=== PATIENT | male | born 1995 | race Caucasian/White ===

== ENCOUNTER 2021-10-28 01:20 | Emergency (ER) | payer SELFPAY ==
[2021-10-28 01:25] VITALS: BP 139/97; PULSE 124; RESP 18; TEMP 36.5; O2SAT 94
--- NOTE | 2021-10-28 02:01 | W.ED.GENAD ---
Discharge Plan Disposition Patient Disposition: HOME Condition: Good Discharge Details Clinical Impression: Laceration of knee, right Primary Care Provider: Unknown,Unknown ED Provider: Selvin Jay Home Meds and New Rx's Prescriptions: No Action No Known Home Meds 0RF Discharge Instructions Additional Instructions: Please leave the dressing on for 48 hours, then you may remove and begin cleaning the wound at least twice a day with soap and water. Continue to apply antibiotic ointment. Do not directly soak the area. Watch for any signs of infection and return if any increasing redness, swelling, pain, drainage. Please return in 7 to 10 days to have your sutures reevaluated for potential removal. If you notice any worsening of your symptoms, or any new symptoms such as vomiting, diarrhea, fever, chills, shortness of breath, chest pain, numbness, weakness, or fainting , please return immediately to the emergency department for reevaluation. Please follow up with your primary care provider as soon as possible for reassessment and reevaluation. As always, it was a pleasure participating in your medical care today. Discharge Data Discharge Date/Time-TO BE ENTERED AT DEPARTURE: 10/28/21 02:19 Medical Decision Making 26-year-old male with no significant past medical history who presents today for laceration to his right knee. Patient states that he was chopping off a deer leg with a ax, when the ask slip and caught his right knee. Aside for very mild ache he denies any pain. He states that initially he poured sugar on it so it would coagulate, but this made it bleed worse. He then came to the ER for further evaluation. He currently denies any pain in his knee. He denies any numbness or tingling. He denies any history of HIV. His tetanus was updated 5 years ago per the patient. He denies any other complaints this time. He denies any pain with walking or ambulation. Physical exam demonstrates a 3 cm laceration just to the right lateral aspect of the patella. Dermis, epidermis and subcutaneous layer all appear to be involved, however deep structures appear to be surprisingly intact. No evidence of significant tendon laceration, vascular injury. Notably inferior, in the right lateral inferior component of the knee the joint space was accessed through sterile technique. Removal of joint fluid showed no evidence of blood. Insertion of additional saline demonstrated no evidence of leaking in the area of the laceration. On exam it does not appear that the joint space has been impacted. For deep sutures were placed with absorbable stitches, and then 6 superficial sutures were placed for wound edge reapproximation. I did discuss imaging options for the patient and at this time through notable discussion, weighing the risks and benefits, and a shared decision making process the patient has refused imaging at this time. Patient is of an appropriate age to make decisions. The patient is of sound mind, appears clinically sober, and has capacity to make decisions by my clinical exam. Respecting the patient's wishes we will hold off on imaging. Patient assures me that if his pain returns, he will come back to get x-rays but has made it unequivocally clear that he does not want any radiographic imaging at this time. Patient was sutured, and he tolerated this well. I did offer a splint for the patient as well, but he has refused this as well stating that he does not need that to remind him to keep his leg straight to prevent any significant bending. I had a long discussion with the patient regarding signs and symptoms to be concerning that would infection, and that if these do occur that he needs to return promptly for reassessment. I have extensively reviewed the treatment plan and discharge instructions with the patient. I have addressed all patient concerns at this time. The patient was made aware of what symptoms to monitor for that would warrant a return to the emergency department. Discussed the plan with the patient, they demonstrate verbal understanding and agreement with our assessment and plan at this time. The documentation in this chart was dictated using [employer] dictation software. Please excuse any dictation errors. HPI General Date/Time Provider Initiated Documentation: 10/28/21 01:21. HPI Narrative: 26-year-old male with no significant past medical history who presents today for laceration to his right knee. Patient states that he was chopping off a deer leg with a ax, when the ask slip and caught his right knee. Aside for very mild ache he denies any pain. He states that initially he poured sugar on it so it would coagulate, but this made it bleed worse. He then came to the ER for further evaluation. He currently denies any pain in his knee. He denies any numbness or tingling. He denies any history of HIV. His tetanus was updated 5 years ago per the patient. He denies any other complaints this time. He denies any pain with walking or ambulation. Related Data Home Medications Medication Instructions Recorded Confirmed Unknown [No Known Home Meds] 10/28/21 10/28/21 Allergies Allergy/AdvReac Type Severity Reaction Status Date / Time No Known Allergies Allergy Unverified 10/28/21 01:32 General Stated Complaint: Laceration DANIEL: 3 Review of Systems All systems reviewed & are unremarkable except as noted in HPI and below PFSH All Active Problems Laceration of knee, right (Acute) Social History Smoking/Tobacco Use Status: Current every day Tobacco Type: cigarettes Smoking risk assessment performed?: Yes Alcohol Intake: current Drug use: Daily Substance use type: marijuana Do you feel safe at home: No Do you feel safe in your relationship?: No Exam Narrative Exam Narrative: 1.Const: Well-nourished, Well-developed, appearing stated age 2.Eyes: PERRL, no conjunctival injection, and symmetrical lids. 3.ENT: Atraumatic external nose and ears. Moist MM. Neck: Symmetric, trachea midline, No thyromegaly. 4.CVS: +S1/S2, No murmurs or gallops. Peripheral pulses 2+ and equal in all extremities. Brisk capillary refill in all extremities. 5.RESP: Unlabored respiratory effort. Clear to auscultation bilaterally. No wheezes rales or rhonchi 6.GI: Soft, Nontender/Nondistended, No hepatosplenomegaly. No guarding or rebound. 7.MSK: Right knee demonstrates a 3 cm laceration on the right lateral aspect of patella. No active bleeding. Laceration appears to include the dermis epidermis and subcutaneous layer. However with probing joint capsule appears to be intact. Additional fluid was sterilely inserted into the joint space significantly inferiorly to the wound, and no fluid was seen coming from the incision site itself. Patient did feel slight increased pressure after fluid injection. No evidence of leaking whatsoever from the laceration site itself. Patient demonstrates good flexion and extension of the knee, no instability for varus or valgus stressing. No pain on palpation of patellar the knee itself. Sensation intact proximally and distally, no evidence of diminished pulses. 8.Skin: Warm, Dry. No rashes or lesions. 9.Neuro: culinary internship II-XII grossly intact. Sensation grossly intact, no focal neurologic deficits. 10.Psych: (AAO) x3. Appropriate mood and affect Course Vital Signs Vital signs: Vital Signs Temperature 36.5 C 10/28/21 01:25 Pulse 124 H 10/28/21 01:25 Respiratory Rate 18 10/28/21 01:25 Blood Pressure 139/97 H 10/28/21 01:25 Pulse Oximetry 94 10/28/21 01:25 Temperature 36.5 C 10/28/21 01:25 Pulse 124 H 10/28/21 01:25 Respiratory Rate 18 10/28/21 01:25 Respiratory Effort 10/28/21 01:28 Blood Pressure 139/97 H 10/28/21 01:25 Blood Pressure Position Supine 10/28/21 01:25 Pulse Oximetry 94 10/28/21 01:25 Oxygen Delivery Method Room Air 10/28/21 01:25 Oxygen Flow Rate 0 10/28/21 01:25 Pain Level 0 10/28/21 01:28 Procedures Laceration Laceration 1: Site: lower extremity (knee) Side (If applicable): right Size (cm): 3 Description: linear Depth: simple, single layer Local Anesthetic: Lidocaine 2% Amount of anesthesia used (mL): 5 Pre-repair: wound explored, irrigated extensively and deep structures intact Skin layer closed with: nylon Size (cm): 4-0 Number of sutures: 6 Technique: simple, interrupted Subcutaneous layer closed with: vicryl Size: 4-0 Number of sutures: 4 Technique: simple, interrupted
[2021-10-28 02:21] VITALS: BP 139/97; PULSE 124; RESP 18; TEMP 36.5; O2SAT 94
== END 2021-10-28 02:19 | disposition home or self-care (01) ==
PROVIDERS: Emergency Provider Student in an Organized Health Care Education/Training Program
DX: S81.011A Laceration without foreign body, right knee, initial encounter (principal); W27.0XXA Contact with workbench tool, initial encounter
CPT/HCPCS: 12002